=== PATIENT | female | born 1970 ===

== ENCOUNTER 2021-05-02 11:53 | Emergency (ER) | payer SELFPAY ==
[2021-05-02 12:36] VITALS: BP 123/73
== END 2021-05-02 13:57 | disposition home or self-care (01) ==
LOC: ED 11:53
DX: T16.2XXA Foreign body in left ear, initial encounter (principal); X58.XXXA Exposure to other specified factors, initial encounter; Y93.89 Activity, other specified; Y92.89 Other specified places as the place of occurrence of the external cause; Y99.8 Other external cause status